=== PATIENT | female | born 1945 | race Two or more races ===

== ENCOUNTER 2017-11-17 08:49 | Outpatient (CLI) | payer OTHER ==
[~2017-11-17 08:49] MED LIST: CALCIUM1 TAB; EVISTA60 MG; MULTI VITAMINS W1 MG; OMEGA-31000 MG; SYNTHROID100 MCG; VYTORIN 10-20 M1 TAB; ZOLOFT25 MG
== END 2017-11-17 08:55 | disposition home or self-care (01) ==
LOC: MAMO-SONO 08:49
DX: Z12.31 Encounter for screening mammogram for malignant neoplasm of breast (principal); Z87.898 Personal history of other specified conditions; N60.11 Diffuse cystic mastopathy of right breast; N60.12 Diffuse cystic mastopathy of left breast

== ENCOUNTER 2018-11-28 10:42 | Outpatient (CLI) | payer OTHER | END 2018-11-28 10:49 | disposition home or self-care (01) | LOC: NUCLEAR 10:42 | DX: M81.0 Age-related osteoporosis without current pathological fracture (principal) ==

== ENCOUNTER 2018-11-28 13:25 | Outpatient (CLI) | payer OTHER | END 2018-11-28 13:28 | disposition home or self-care (01) | LOC: MAMO-SONO 13:25 | DX: Z12.31 Encounter for screening mammogram for malignant neoplasm of breast (principal); Z87.898 Personal history of other specified conditions; N64.4 Mastodynia; N60.19 Diffuse cystic mastopathy of unspecified breast ==

== ENCOUNTER 2019-04-12 13:05 | Outpatient (CLI) | payer OTHER | END 2019-04-12 14:51 | disposition home or self-care (01) | LOC: TOM 13:05 | DX: K56.600 Partial intestinal obstruction, unspecified as to cause (principal); Z12.11 Encounter for screening for malignant neoplasm of colon ==

== ENCOUNTER 2019-12-07 14:26 | Outpatient (CLI) | payer OTHER | END 2019-12-07 14:36 | disposition home or self-care (01) | LOC: MAMO-SONO 14:26 | PROVIDERS: ATTEND Obstetrics & Gynecology | DX: Z12.31 Encounter for screening mammogram for malignant neoplasm of breast (principal); N64.4 Mastodynia ==

== ENCOUNTER 2020-04-17 09:53 | Outpatient (CLI) | payer OTHER | END 2020-04-17 10:25 | disposition home or self-care (01) | LOC: TOM 09:53 | PROVIDERS: ATTEND Otolaryngology | DX: J01.30 Acute sphenoidal sinusitis, unspecified (principal); J31.0 Chronic rhinitis ==

== ENCOUNTER 2020-12-11 08:00 | Outpatient (CLI) | payer OTHER | END 2020-12-11 15:00 | disposition home or self-care (01) | LOC: LAB 08:00 | PROVIDERS: ATTEND Obstetrics & Gynecology | DX: N39.0 Urinary tract infection, site not specified (principal); B96.4 Proteus (mirabilis) (morganii) as the cause of diseases classified elsewhere; N95.2 Postmenopausal atrophic vaginitis; E03.8 Other specified hypothyroidism; E55.9 Vitamin D deficiency, unspecified; R73.09 Other abnormal glucose; R78.89 Finding of other specified substances, not normally found in blood; R19.09 Other intra-abdominal and pelvic swelling, mass and lump; R97.8 Other abnormal tumor markers ==

== ENCOUNTER 2020-12-11 09:18 | Outpatient (CLI) | payer OTHER | END 2020-12-11 09:20 | disposition home or self-care (01) | LOC: MAMO-SONO 09:18 | PROVIDERS: ATTEND Obstetrics & Gynecology | DX: N64.59 Other signs and symptoms in breast (principal); Z12.31 Encounter for screening mammogram for malignant neoplasm of breast; Z64.4 Discord with counselors; M81.0 Age-related osteoporosis without current pathological fracture ==

== ENCOUNTER 2020-12-11 10:25 | Outpatient (CLI) | payer OTHER | END 2020-12-11 10:26 | disposition home or self-care (01) | LOC: NUCLEAR 10:25 | PROVIDERS: ATTEND Obstetrics & Gynecology | DX: M81.0 Age-related osteoporosis without current pathological fracture (principal) ==

== ENCOUNTER 2021-02-10 08:00 | Outpatient (CLI) | payer OTHER | END 2021-02-10 08:30 | disposition home or self-care (01) | LOC: PPH VACUNA 08:00 | PROVIDERS: ATTEND Emergency Medicine Pediatric Emergency Medicine | DX: Z23 Encounter for immunization (principal) ==

== ENCOUNTER 2021-12-25 08:55 | Outpatient (CLI) | payer OTHER | END 2021-12-25 15:00 | disposition home or self-care (01) | LOC: LAB 08:55 | PROVIDERS: ATTEND Obstetrics & Gynecology | DX: N95.2 Postmenopausal atrophic vaginitis (principal); E03.9 Hypothyroidism, unspecified; E55.9 Vitamin D deficiency, unspecified; R73.9 Hyperglycemia, unspecified; E78.9 Disorder of lipoprotein metabolism, unspecified; D64.9 Anemia, unspecified; N39.0 Urinary tract infection, site not specified; R19.09 Other intra-abdominal and pelvic swelling, mass and lump; R97.8 Other abnormal tumor markers ==

== ENCOUNTER 2021-12-25 09:27 | Outpatient (CLI) | payer OTHER | END 2021-12-25 09:36 | disposition home or self-care (01) | LOC: MAMO-SONO 09:27 | PROVIDERS: ATTEND Obstetrics & Gynecology | DX: Z12.31 Encounter for screening mammogram for malignant neoplasm of breast (principal); N64.4 Mastodynia ==

== ENCOUNTER 2022-05-08 07:37 | Outpatient (CLI) | payer OTHER | END 2022-05-08 08:00 | disposition home or self-care (01) | LOC: TOM 07:37 | PROVIDERS: ATTEND Internal Medicine Sports Medicine | DX: J18.9 Pneumonia, unspecified organism (principal); J01.90 Acute sinusitis, unspecified ==

== ENCOUNTER → 2022-05-30 | Emergency (ER) | payer OTHER ==
[~2022-05-30] VITALS: Ht 170.2 cm; Wt 60.8 kg
[~2022-05-30] MED LIST changes: +COZAAR100 MG PO; +LEXAPRO5 MG; +MICARDIS80 MG; +SYNTHROID75 MCG PO
== END | disposition left against medical advice (07) ==
LOC: ER 14:21
DX: S99.922A Unspecified injury of left foot, initial encounter (principal); Y93.9 Activity, unspecified; Y92.9 Unspecified place or not applicable; W22.8XXA Striking against or struck by other objects, initial encounter; Z91.018 Allergy to other foods

== ENCOUNTER 2022-12-31 09:51 | Outpatient (CLI) | payer OTHER | END 2022-12-31 10:04 | disposition home or self-care (01) | LOC: MAMO-SONO 09:51 | PROVIDERS: ATTEND Obstetrics & Gynecology | DX: Z12.31 Encounter for screening mammogram for malignant neoplasm of breast (principal); N64.4 Mastodynia; M81.0 Age-related osteoporosis without current pathological fracture ==

== ENCOUNTER 2022-12-31 11:00 | Outpatient (CLI) | payer OTHER | END 2022-12-31 11:11 | disposition home or self-care (01) | LOC: NUCLEAR 11:00 | PROVIDERS: ATTEND Obstetrics & Gynecology | DX: M81.0 Age-related osteoporosis without current pathological fracture (principal) ==

== ENCOUNTER 2022-12-31 15:49 | Outpatient (CLI) | payer OTHER | END 2022-12-31 15:50 | disposition home or self-care (01) | LOC: LAB 15:49 | PROVIDERS: ATTEND Obstetrics & Gynecology | DX: N95.2 Postmenopausal atrophic vaginitis (principal); E03.9 Hypothyroidism, unspecified; E55.9 Vitamin D deficiency, unspecified; R73.9 Hyperglycemia, unspecified; E78.9 Disorder of lipoprotein metabolism, unspecified; D64.9 Anemia, unspecified; R19.09 Other intra-abdominal and pelvic swelling, mass and lump; R97.8 Other abnormal tumor markers ==

== ENCOUNTER 2023-01-08 07:56 | Outpatient (CLI) | payer OTHER | END 2023-01-08 08:11 | disposition home or self-care (01) | LOC: SONOGRAMA 07:56 | PROVIDERS: ATTEND Obstetrics & Gynecology | DX: R31.29 Other microscopic hematuria (principal) ==

== ENCOUNTER 2023-01-16 11:46 | Emergency (ER) | payer OTHER ==
[~2023-01-16] VITALS: Ht 170.2 cm; Wt 61.7 kg
[2023-01-16] MEDS ORDERED: ROSUVASTATIN CA40 MG PO (12:07)
== END 2023-01-16 14:07 ==
LOC: ER 11:46
DX: H92.02 Otalgia, left ear (principal); I10 Essential (primary) hypertension; Z91.018 Allergy to other foods
CPT/HCPCS: 96372; 99282; J1100

== ENCOUNTER 2023-05-14 09:07 | Day surgery (SDC) | payer OTHER ==
[2023-05-10 10:09] LABS: URINE APPEARANCE Clear; URINE BILIRRUBIN Negative (NEGATIVE); URINE BLOOD Negative; URINE COLOR Yellow; URINE GLUCOSE Negative (NEGATIVE); URINE LEUKOCYTE Negative; URINE NITRATE Negative; URINE PROTEIN Negative (NEGATIVE); URINE UROBILINOGEN 0.2 E.U./dl
[2023-05-10 10:13] LABS: URINE BACTERIA 23.9 uL (0.0-1933); URINE EPITHELIAL CELLS 2.9 uL (0.0-38.8); URINE RBC 6.4 uL (0.0-20.8)
[2023-05-10 10:23] LABS: HEMATOCRIT 40.8 % (36.0-45.00); HEMOGLOBIN 13.7 g/dL (12.0-15.00); MEAN CORPUSCULAR HEMOGLOBIN 30.8 pg (27.00-32.0); MEAN CORPUSCULAR HGB CONC 33.5 g/dl (32.0-36.0); PLATELET COUNT 202 K/uL (150-450); RED BLOOD COUNT 4.43 M/uL (4.00-6.00); RED CELL DISTRIBUTION WIDTH 13.5 % (11.5-14.5)
[2023-05-10 10:42] LABS: INR 1.04; PARTIAL THROMBOPLASTIN TIME 27.6 SECONDS (22.0-34.0); PROTHROMBIN TIME 10.9 SECONDS (9.0-11.5)
[2023-05-10 10:47] LABS: URINE WBC 1.3 uL (0.0-23.2)
[2023-05-10 10:53] LABS: ALBUMIN 3.5 gm/dL (3.4-5.0); CALCIUM 9.1 mg/dL (8.5-10.1); CREATININE SERUM 0.58 mg/dL (0.55-1.02); GFR 100.54; PHOSPHOROUS 3.6 mg/dL (2.5-4.9); POTASSIUM 4.54 mEq/L (3.5-5.1)
[~2023-05-14 09:07] MED LIST changes: +ROSUVASTATIN CA40 MG PO
[2023-05-14] MEDS ORDERED: CIPROFLOXACIN2.5 ML OTIC (14:40)
[2023-05-14] MEDS ORDERED: CEPHALEXIN500 MG PO (14:41)
== END 2023-05-14 17:10 | disposition home or self-care (01) ==
LOC: CIR.AMB 09:07
PROVIDERS: ATTEND Otolaryngology Otology & Neurotology
DX: H72.92 Unspecified perforation of tympanic membrane, left ear (principal); H90.A12 Conductive hearing loss, unilateral, left ear with restricted hearing on the contralateral side; Z20.822 Contact with and (suspected) exposure to COVID-19

== ENCOUNTER → 2024-02-08 16:00 | Outpatient (CLI) | payer OTHER ==
[~2024-02-08 16:00] MED LIST changes: +CEPHALEXIN500 MG PO; +CIPROFLOXACIN2.5 ML OTIC
== END | disposition home or self-care (01) ==
LOC: MAMO-SONO 09:37
PROVIDERS: ATTEND Obstetrics & Gynecology
DX: N64.4 Mastodynia (principal); Z12.31 Encounter for screening mammogram for malignant neoplasm of breast; N60.11 Diffuse cystic mastopathy of right breast; N60.12 Diffuse cystic mastopathy of left breast

== ENCOUNTER 2024-07-31 09:16 | Outpatient (CLI) | payer OTHER | END 2024-07-31 09:33 | disposition home or self-care (01) | LOC: SONOGRAMA 09:16 | PROVIDERS: ATTEND Obstetrics & Gynecology | DX: N60.11 Diffuse cystic mastopathy of right breast (principal); N60.12 Diffuse cystic mastopathy of left breast ==

== ENCOUNTER → 2025-02-12 09:31 | Outpatient (CLI) | payer OTHER | END | disposition home or self-care (01) | LOC: NUCLEAR 09:00 | PROVIDERS: ATTEND Obstetrics & Gynecology | DX: M81.0 Age-related osteoporosis without current pathological fracture (principal) ==